=== PATIENT | male | born 1945 | race Caucasian/White ===

== ENCOUNTER 2020-03-01 03:29 | Emergency (ER) | payer OTHER, MEDICARE ==
[~2020-03-01] VITALS: Ht 182.9 cm; Wt 68.0 kg
--- NOTE | 2020-03-01 03:43 | NUR ---
Pt arrvies via EMS for GLF at home tonight. Pt hit head on bathtub. Positive loss of consciouness for approx 30 minutes, witnessed by pt's . Pt is currently alert, and oriented to person, place and situation. Pt on RA. Pt denies knowing what happened before the fall. C-collar in place by EMS. PIV placed by EMS. Pt is not on any blood thinner. Pt is not on any medications and has no past medical hx. Pt on full monitors. Pt able to stand to pee in urinal.
--- NOTE | 2020-03-01 03:45 | NUR ---
Pt home landline is [phone]
--- NOTE | 2020-03-01 04:18 | NUR ---
Pt alert and resting on gurney. at bedside. reports pt was acting normally before bed. Xray complete. Urine sent. Pt to CT. VSS.
[2020-03-01 04:28] LABS: BASOPHILS # (AUTO) 0.03 x10^3/uL (0-0.1); BASOPHILS % (AUTO) 1 % (0-1); EOSINOPHILS % (AUTO) 5 % (1-7); LYMPHOCYTES % (AUTO) 25 % (22-44); MD NO; MEAN CORPUSCULAR HEMOGLOBIN 33.6 pg (27.5-34.5); MEAN CORPUSCULAR HGB CONC 33.7 g/dL (33.2-36.2); MEAN CORPUSCULAR VOLUME 99.7 fL (81-97); MEAN PLATELET VOLUME 6.9 fL (7.4-10.4); MONOCYTES # (AUTO) 0.25 x10^3/uL (0.2-0.8); MONOCYTES % (AUTO) 6 % (2-9); NEUTROPHILS # (AUTO) 2.79 x10^3/uL (1.8-6.8); NEUTROPHILS % (AUTO) 64 % (42-75); PLATELET COUNT 208 x10^3/uL (130-400); RED BLOOD COUNT 4.75 x10^6/uL (4.38-5.82); RED CELL DISTRIBUTION WIDTH 12.7 % (9.4-14.8)
[2020-03-01 04:29] LABS: MICROSCOPIC AUTO
[2020-03-01 04:31] LABS: ALANINE AMINOTRANSFERASE 26 U/L (12-78); ALBUMIN 3.7 g/dL (3.4-5.0); ANION GAP 6 mmol/L (5-15); CALCIUM 8.7 mg/dL (8.5-10.1); CHLORIDE 109 mmol/L (98-107); CREATININE 1.13 mg/dL (0.7-1.3)
[2020-03-01 04:35] LABS: ALKALINE PHOSPHATASE 71 U/L (45-117); BILIRUBIN,TOTAL 0.7 mg/dL (0.2-1.0); TROPONIN I < 0.015 ng/mL (0.000-0.045)
--- NOTE | 2020-03-01 04:43 | NUR ---
Pt remains resting on gurney. NAD. VS retaken and stable. and pt deny needs at this time.
--- NOTE | 2020-03-01 05:20 | NUR ---
bedside report from [facility] rn, pt resting in [facility], no change in condition, up for recheck. wctm.
[2020-03-01 05:55] VITALS: BP 150/85
--- NOTE | 2020-03-01 05:56 | NUR ---
Patient/SPOUSE given discharge instructions and they have confirmed that they understand the instructions. Patient ambulatory with steady gait. DENIES ADDITIONAL QUESTIONS OR NEEDS AT THIS TIME. NAD. P/W/D. NO PT BELONGINGS LEFT IN ROOM AFTER DC.
== END 2020-03-01 05:57 | disposition home or self-care (01) ==
LOC: ED 03:53
DX: R55 Syncope and collapse (principal); R94.31 Abnormal electrocardiogram [ECG] [EKG]; W18.30XA Fall on same level, unspecified, initial encounter; Y93.89 Activity, other specified; Y92.009 Unspecified place in unspecified non-institutional (private) residence as the place of occurrence of the external cause; Y99.8 Other external cause status
CPT/HCPCS: 36415; 70450; 71045; 80053; 81001; 84484; 85025; 93005; 99285